=== PATIENT | female | born 1990 | race Caucasian/White ===

== ENCOUNTER 2024-04-05 21:27 | Emergency (ER) | payer SELFPAY ==
[2024-04-05] MEDS ORDERED: Morphine 4 MG/ML VIAL ONE (22:31)
[2024-04-05 23:03] LABS: #Basophils 0.02 10x3/uL (0.0-0.2); #Monocytes 0.15 10x3/uL (0.0-1.1); #Neutrophils 1.97 10x3/uL (1.5-8.4); %Basophils 0.6 % (0.0-2.0); %Monocytes 4.7 % (0.0-10.0); %Neutrophils 61.4 % (40.0-75.0); Hemoglobin 12.6 g/dL (12.0-15.5); Mean Corpuscular HGB CONC 37.1 g/dL (32.0-36.0); Mean Corpuscular Hemoglobin 31.3 pg (27.0-33.0); Mean Corpuscular Volume 84.6 fL (81.6-98.3); Mean Platelet Volume 10.3 fL (7.4-10.4); Platelet Count 124 10x3/uL (150-450); RBC Distribution Width 11.5 % (11.5-14.5); Red Blood Cell (RBC) Count 4.02 10x6/uL (3.90-5.03); White Blood Cell (WBC) Count 3.2 10x3/uL (3.5-10.5)
[2024-04-05] MEDS ORDERED: Piperacillin/Tazobactam 3.375 GM VIAL ONE (23:08)
[2024-04-05 23:13] LABS: ALT (SGPT) 17 U/L (8-55); AST (SGOT) 26 U/L (5-34); Albumin 3.5 g/dL (3.5-5.0); Alkaline Phosphatase 63 U/L (40-110); Anion Gap 14 mmol/L (10-20); BUN (Urea Nitrogen) 9 mg/dL (7.0-18.7); Bilirubin, Total 0.3 mg/dL (0.2-1.2); Calc. Creatinine Clearance 0 mL/min (70-130); Calcium 9.3 mg/dL (7.8-10.44); Carbon Dioxide 26 mmol/L (22-29); Chloride 100 mmol/L (98-107); Estimated GFR 95; Globulin 3.9 g/dL (2.4-3.5); Glucose 115 mg/dL (70-105); Potassium 3.8 mmol/L (3.5-5.1); Protein, Total 7.4 g/dL (6.0-8.3); Sodium 136 mmol/L (136-145)
== END 2024-04-06 00:34 | disposition home or self-care (01) ==
LOC: CSHERS 21:27
DX: K11.6 Mucocele of salivary gland (principal)
CPT/HCPCS: 36415; 70487; 80053; 83605; 85025; 86140; 87040; 96365; 96375; J2270; J2543